=== PATIENT | female | born 1965 | race Two or more races ===

== ENCOUNTER 2016-09-24 00:05 | Emergency (ER) | payer MEDICAID ==
[2016-09-24 01:20] LABS: BASOPHIL % 0.4 % (0-2); PLATELET COUNT 266 x10^3mcL (130-400); RED CELL DISTRIBUTION WIDTH 13.8 % (11.5-14.5)
[2016-09-24 01:21] LABS: microscopic required? YES; urine erythrocyte 1+ (NEGATIVE)
[2016-09-24 01:27] LABS: CALCIUM 8.6 mg/dL (8.5-10.1); CARBON DIOXIDE 24.1 mmol/L (21-32); CHLORIDE SERUM 102 mmol/L (98-107); CREATININE SERUM 0.8 mg/dL (0.6-1.0); GFR1 > 60 mL/min; GLUCOSE SERUM 342 mg/dL (74-106); POTASSIUM SERUM 3.9 mmol/L (3.5-5.1); SODIUM SERUM 136 mmol/L (136-145)
[2016-09-24 01:31] LABS: ALKALINE PHOSPHATASE 151 U/L (46-116); ALT/SGPT 67 U/L (14-59); AST/SGOT 36 U/L (15-37); C REACTIVE PROTEIN 4.9 mg/dL (<=0.9); TOTAL PROTEIN, SERUM 7.6 g/dL (6.4-8.2)
[2016-09-24 01:32] LABS: ALBUMIN 3.3 g/dL (3.4-5.0)
[2016-09-24 02:17] LABS: ERYTHROCYTE SED RATE 22 mm/hr (0-30)
[2016-09-24 03:16] VITALS: BP 148/78
== END 2016-09-24 03:16 | disposition home or self-care (01) ==
LOC: ED 00:05
PROVIDERS: Emergency Medicine
DX: N39.0 Urinary tract infection, site not specified (principal); E11.65 Type 2 diabetes mellitus with hyperglycemia; H10.9 Unspecified conjunctivitis; M19.042 Primary osteoarthritis, left hand; M19.041 Primary osteoarthritis, right hand; M54.41 Lumbago with sciatica, right side
CPT/HCPCS: 82962; J1815; J1885; Q0092